=== PATIENT | male | born 1940 | race Caucasian/White ===

== ENCOUNTER 2019-10-24 08:32 | Outpatient (CLI) | payer MEDICARE, SELFPAY ==
[2019-10-24 08:52] LABS: Basophils Percent Auto 0.6 % (0.2-1.2); Eosinophils Absolute Auto 0.3 K/mm3 (0-0.3); Eosinophils Percent Auto 3.9 % (0-4.4); Hematocrit 41.9 % (42.0-52.0); Hemoglobin 14.3 g/dL (14.0-18.0); Immature Granulocyte Absolute 0.02 K/mm3 (0.00-0.031); Immature Granulocyte Percent A 0.3 % (0-0.5); Immature Platelet Fraction Pct 2.8 % (0.9-11.2); Lymphocytes Absolute Auto 2.28 K/mm3 (0.9-3.2); Lymphocytes Percent Auto 35.2 % (18.3-44.2); Mean Corpuscular HGB Conc 34.1 g/dl (32-36); Mean Corpuscular Hemoglobin 29.7 pg (26-34); Mean Corpuscular Volume 87.1 fl (80-100); Mean Platelet Volume 10.3 fl (7.4-10.4); Monocytes Absolute Auto 0.4 K/mm3 (0.1-0.6); Monocytes Percent Auto 6.6 % (2.6-8.5); Neutrophils Absolute Auto 3.5 K/mm3 (1.3-6.7); Neutrophils Percent Auto 53.4 % (45.5-73.1); Platelet Count Result 107 k/mm3 (150-375); Red Blood Count 4.81 M/mm3 (4.6-6.20); Red Cell Distribution Width 13.2 % (11.5-14.5); White Blood Count 6.5 K/mm3 (4.5-10.0)
[2019-10-24 09:00] LABS: Alanine Aminotransferase 16 U/L (4-50); Albumin Level 4.6 g/dL (3.5-5.1); Alkaline Phosphatase 22 U/L (38-126); Aspartate Amino Transferase 23 U/L (17-59); Bilirubin,Total 1.4 mg/dL (0.2-1.3); Blood Urea Nitrogen 19 mg/dL (9-20); Calcium 9.3 mg/dL (8.4-10.2); Carbon Dioxide 29 mmol/L (22-30); Chloride 101 mmol/L (98-107); Cholesterol 113 mg/dL (0-200); Estimated Glomerular Filt Rate 59; Glucose 93 mg/dL (75-110); HDL Direct 35 mg/dL; Potassium 3.8 mmol/L (3.4-5.0); Sodium 137 mmol/L (137-145); Triglycerides 105 mg/dL (<150)
[2019-10-24 09:03] LABS: Hemoglobin A1C 5.2 % (<5.7)
[2019-10-24 09:11] LABS: LDL Cholesterol Direct 54 mg/dL
== END 2019-10-24 08:33 | disposition home or self-care (01) ==
PROVIDERS: PCP Family Medicine; Visit Provider Physician Assistant
DX: I48.91 Unspecified atrial fibrillation (principal); I10 Essential (primary) hypertension; Z79.899 Other long term (current) drug therapy; R73.01 Impaired fasting glucose
CPT/HCPCS: 36415; 80053; 80061; 83036; 84443; 85025; 85055

== ENCOUNTER 2020-10-03 06:37 | Outpatient (CLI) | payer MEDICARE, SELFPAY ==
[2020-10-03 07:36] LABS: Alanine Aminotransferase 17 U/L (4-50); Albumin Level 4.4 g/dL (3.5-5.1); Anion Gap 9 mmol/L (8-16); Aspartate Amino Transferase 21 U/L (17-59); Bilirubin,Total 1.1 mg/dL (0.2-1.3); Blood Urea Nitrogen 24 mg/dL (9-20); Calcium 9.7 mg/dL (8.4-10.2); Carbon Dioxide 29 mmol/L (22-30); Chloride 103 mmol/L (98-107); Estimated Glomerular Filt Rate 49; Glucose 105 mg/dL (75-110); Potassium 4.1 mmol/L (3.4-5.0); Sodium 141 mmol/L (137-145)
[2020-10-03 07:47] LABS: Alkaline Phosphatase < 20 U/L (38-126)
[2020-10-03 08:05] LABS: Prostate Specific Antigen 0.7 ng/mL (< OR = 4.0)
[2020-10-03 08:39] LABS: Hemoglobin A1C 4.9 % (<5.7)
== END 2020-10-03 06:38 | disposition home or self-care (01) ==
PROVIDERS: PCP Family Medicine; Visit Provider Physician Assistant
DX: Z12.5 Encounter for screening for malignant neoplasm of prostate (principal); R73.01 Impaired fasting glucose
CPT/HCPCS: 36415; 80053; 83036; 84153; G0103

== ENCOUNTER 2021-02-18 06:36 | Outpatient (CLI) | payer MEDICARE, SELFPAY ==
[2021-02-18 07:18] LABS: Hematocrit 41.9 % (42.0-52.0); Hemoglobin 14.7 g/dL (14.0-18.0); Immature Platelet Fraction Pct 3.8 % (0.9-11.2); Mean Corpuscular HGB Conc 35.1 g/dl (32-36); Mean Corpuscular Hemoglobin 31.7 pg (26-34); Mean Corpuscular Volume 90.3 fl (80-100); Mean Platelet Volume 9.5 fl (7.4-10.4); Platelet Count Result 88 k/mm3 (150-375); Red Blood Count 4.64 M/mm3 (4.6-6.20); Red Cell Distribution Width 13.3 % (11.5-14.5); White Blood Count 5.3 K/mm3 (4.5-10.0)
[2021-02-18 07:29] LABS: Hemoglobin A1C 4.9 % (<5.7)
[2021-02-18 07:31] LABS: Alanine Aminotransferase 17 U/L (4-50); Albumin Level 4.8 g/dL (3.5-5.1); Alkaline Phosphatase 21 U/L (38-126); Anion Gap 8 mmol/L (8-16); Aspartate Amino Transferase 24 U/L (17-59); Bilirubin,Total 1.2 mg/dL (0.2-1.3); Blood Urea Nitrogen 22 mg/dL (9-20); Calcium 9.5 mg/dL (8.4-10.2); Carbon Dioxide 30 mmol/L (22-30); Chloride 101 mmol/L (98-107); Cholesterol 142 mg/dL (0-200); Estimated Glomerular Filt Rate > 60; Glucose 112 mg/dL (65-110); HDL Direct 42 mg/dL; Potassium 4.2 mmol/L (3.4-5.0); Sodium 139 mmol/L (137-145); Triglycerides 166 mg/dL (<150)
[2021-02-18 07:42] LABS: LDL Cholesterol Direct 60 mg/dL
== END 2021-02-18 06:37 | disposition home or self-care (01) ==
PROVIDERS: PCP Family Medicine; Visit Provider Physician Assistant
DX: R73.01 Impaired fasting glucose (principal); N40.1 Benign prostatic hyperplasia with lower urinary tract symptoms; I10 Essential (primary) hypertension; Z79.899 Other long term (current) drug therapy
CPT/HCPCS: 36415; 80053; 80061; 83036; 84443; 85027; 85055

== ENCOUNTER 2021-04-03 06:51 | Outpatient (CLI) | payer MEDICARE, SELFPAY ==
[2021-04-03 07:53] LABS: Basophils Percent Auto 0.7 % (0.2-1.2); Eosinophils Absolute Auto 0.3 K/mm3 (0-0.3); Eosinophils Percent Auto 5.1 % (0-4.4); Hematocrit 42.3 % (42.0-52.0); Hemoglobin 14.9 g/dL (14.0-18.0); Immature Granulocyte Absolute 0.03 K/mm3 (0.00-0.031); Immature Granulocyte Percent A 0.5 % (0-0.5); Lymphocytes Absolute Auto 2.18 K/mm3 (0.9-3.2); Lymphocytes Percent Auto 37.4 % (18.3-44.2); Mean Corpuscular HGB Conc 35.2 g/dl (32-36); Mean Corpuscular Hemoglobin 32.3 pg (26-34); Mean Corpuscular Volume 91.6 fl (80-100); Mean Platelet Volume 9.7 fl (7.4-10.4); Monocytes Absolute Auto 0.5 K/mm3 (0.1-0.6); Monocytes Percent Auto 7.7 % (2.6-8.5); Neutrophils Absolute Auto 2.8 K/mm3 (1.3-6.7); Neutrophils Percent Auto 48.6 % (45.5-73.1); Platelet Count Result 112 k/mm3 (150-375); Red Blood Count 4.62 M/mm3 (4.6-6.20); Red Cell Distribution Width 13.4 % (11.5-14.5); White Blood Count 5.8 K/mm3 (4.5-10.0)
== END 2021-04-03 06:52 | disposition home or self-care (01) ==
PROVIDERS: PCP Family Medicine; Visit Provider Family Medicine
DX: R79.89 Other specified abnormal findings of blood chemistry (principal); Z51.81 Encounter for therapeutic drug level monitoring; Z79.899 Other long term (current) drug therapy; E78.1 Pure hyperglyceridemia; I10 Essential (primary) hypertension; R60.9 Edema, unspecified
CPT/HCPCS: 36415; 84439; 84443; 85025; 85055

== ENCOUNTER 2022-06-24 07:13 | Outpatient (CLI) | payer MEDICARE, SELFPAY ==
[2022-06-24 07:40] LABS: Alanine Aminotransferase 25 U/L (6-50); Albumin Level 4.4 g/dL (3.5-5.1); Alkaline Phosphatase 26 U/L (38-126); Anion Gap 7 mmol/L (8-16); Aspartate Amino Transferase 26 U/L (17-59); Bilirubin,Total 1.1 mg/dL (0.2-1.3); Blood Urea Nitrogen 17 mg/dL (9-20); Calcium 8.8 mg/dL (8.4-10.2); Carbon Dioxide 28 mmol/L (22-30); Chloride 104 mmol/L (98-107); Cholesterol 113 mg/dL (0-200); Estimated Glomerular Filt Rate 58; Glucose 114 mg/dL (65-110); HDL Direct 27 mg/dL; Potassium 3.8 mmol/L (3.4-5.0); Sodium 139 mmol/L (137-145); Triglycerides 184 mg/dL (<150)
[2022-06-24 07:51] LABS: LDL Cholesterol Direct 46 mg/dL
[2022-06-24 08:11] LABS: Hemoglobin A1C 5.2 % (<5.7)
[2022-06-24 08:18] LABS: Free T4 Free Thyroxine 0.95 ng/mL (0.78-2.19)
== END 2022-06-24 07:14 | disposition home or self-care (01) ==
LOC: ANHLAB 07:15
PROVIDERS: PCP Emergency Medicine; Visit Provider Emergency Medicine
DX: R73.01 Impaired fasting glucose (principal); E03.9 Hypothyroidism, unspecified; E78.1 Pure hyperglyceridemia
CPT/HCPCS: 36415; 80053; 80061; 83036; 84439; 84443

== ENCOUNTER → 2023-05-18 14:49 | Outpatient (CLI) | payer MEDICARE, SELFPAY ==
--- NOTE | ~2023-05-18 | XR_ITS ---
XR hand LT 2V DATE: 05/18/2023 15:06 INDICATION: Fall one week ago. Swelling. TECHNIQUE: 3 views COMPARISON: None FINDINGS: No fracture, dislocation, periosteal reaction or bone destruction is evident. Joint spaces are relatively preserved. No erosive change or chondrocalcinosis. IMPRESSION: No significant abnormality Reviewed, dictated and finalized at location B. ICIAN ASSISTANT SURGERY IMPRESSION: No significant abnormality
--- NOTE | ~2023-05-18 | XR_ITS ---
XR forearm LT 2V DATE: 05/18/2023 15:07 INDICATION: Fall one week ago. Swelling. TECHNIQUE: AP and lateral views COMPARISON: None FINDINGS: Dorsal olecranon process spur. No fracture or dislocation, periosteal reaction or bone dest ruction of the radius or ulna. Normal alignment at the elbow and wrist joints. IMPRESSION: Dorsal olecranon process spur Reviewed, dictated and finalized at location B. HEATER HELPER
--- NOTE | ~2023-05-18 | XR_ITS ---
XR wrist LT min 3V DATE: 05/18/2023 15:07 INDICATION: Fall one week ago. Swelling. TECHNIQUE: 4 views COMPARISON: None FINDINGS: Benign-appearing probable cyst of the navicular bone. No fracture or dislocation, periosteal reaction or bone destruction is detected. Joint spaces are rel atively well preserved. No erosive change is noted. IMPRESSION: No fracture or dislocation is detected. Reviewed, dictated and finalized at location B. SCAPING SPECIALIST
== END ==
PROVIDERS: PCP Emergency Medicine; Visit Provider Emergency Medicine
DX: M25.432 Effusion, left wrist (principal); M25.722 Osteophyte, left elbow; W19.XXXA Unspecified fall, initial encounter
CPT/HCPCS: 73090; 73110; 73120

== ENCOUNTER 2023-05-18 15:07 | Outpatient (CLI) | payer MEDICARE, SELFPAY ==
[2023-05-18 19:04] LABS: Basophils Absolute Auto 0.1 K/mm3 (0.0-0.1); Basophils Percent Auto 0.8 % (0.2-1.2); Eosinophils Absolute Auto 0.2 K/mm3 (0-0.3); Eosinophils Percent Auto 2.1 % (0-4.4); Hematocrit 40.9 % (42.0-52.0); Hemoglobin 13.7 g/dL (14.0-18.0); Immature Granulocyte Absolute 0.03 K/mm3 (0.00-0.031); Immature Granulocyte Percent A 0.4 % (0-0.5); Lymphocytes Absolute Auto 1.63 K/mm3 (0.9-3.2); Lymphocytes Percent Auto 21.1 % (18.3-44.2); Mean Corpuscular HGB Conc 33.5 g/dl (32-36); Mean Corpuscular Hemoglobin 30.9 pg (26-34); Mean Corpuscular Volume 92.1 fl (80-100); Mean Platelet Volume 10.3 fl (7.4-10.4); Monocytes Absolute Auto 0.5 K/mm3 (0.1-0.6); Monocytes Percent Auto 6.1 % (2.6-8.5); Neutrophils Absolute Auto 5.4 K/mm3 (1.3-6.7); Neutrophils Percent Auto 69.5 % (45.5-73.1); Platelet Count Result 132 k/mm3 (150-375); Red Blood Count 4.44 M/mm3 (4.6-6.20); Red Cell Distribution Width 14.3 % (11.5-14.5); White Blood Count 7.7 K/mm3 (4.5-10.0)
== END 2023-05-18 15:08 | disposition home or self-care (01) ==
LOC: ANHGOSHLAB 15:09
PROVIDERS: PCP Emergency Medicine; Visit Provider Emergency Medicine
DX: I48.91 Unspecified atrial fibrillation (principal)
CPT/HCPCS: 36415; 85025

== ENCOUNTER 2023-12-15 12:55 | Outpatient (CLI) | payer MEDICARE, SELFPAY ==
[2023-12-15 14:34] LABS: Alanine Aminotransferase 17 U/L (6-50); Albumin Level 4.6 g/dL (3.5-5.1); Alkaline Phosphatase 26 U/L (38-126); Anion Gap 11 mmol/L (4-12); Aspartate Amino Transferase 27 U/L (17-59); Bilirubin,Total 2.7 mg/dL (0.2-1.3); Blood Urea Nitrogen 17 mg/dL (9-20); Calcium 9.5 mg/dL (8.4-10.2); Carbon Dioxide 29 mmol/L (22-30); Chloride 96 mmol/L (98-107); Estimated Glomerular Filt Rate 58; Glucose 94 mg/dL (65-110); Potassium 4.2 mmol/L (3.4-5.0); Sodium 136 mmol/L (137-145)
[2023-12-15 14:47] LABS: Free T4 Free Thyroxine 0.87 ng/mL (0.78-2.19)
[2023-12-15 15:02] LABS: Prostate Specific Antigen 1.7 ng/mL (< OR = 4.0); Total Triiodothyronine (T3) 0.86 NG/ML (0.97-1.69)
== END 2023-12-15 12:56 | disposition home or self-care (01) ==
LOC: ANHLAB 12:58
PROVIDERS: PCP Emergency Medicine; Visit Provider Emergency Medicine
DX: Z12.5 Encounter for screening for malignant neoplasm of prostate (principal); E78.1 Pure hyperglyceridemia; R73.01 Impaired fasting glucose; E03.9 Hypothyroidism, unspecified; E03.8 Other specified hypothyroidism
CPT/HCPCS: 36415; 80053; 84153; 84439; 84443; 84480; G0103

== ENCOUNTER 2024-12-13 13:26 | Outpatient (CLI) | payer MEDICARE, SELFPAY ==
--- OUTSIDE RECORDS SUMMARY | 2024-12-13 13:45 | XMS_ITS | Clinical Summary ---
Author Organization [facility] [address] Address [address] [place] [address] Care Team Providers Care Cold Rolling Machine Setter Name Role Phone Radha Messina MD Primary Care Provider [phone] Allergies Active Allergy Reactions Criticality Noted Date Comments Iodinated Contrast Media Syncope High 04/30/2018 Medications doxazosin (CARDURA) 4 mg tablet Take 4 mg by mouth nightly 03/18/2018 Active multivitamin capsule Take 1 capsule by mouth daily. Active nebivolol (BYSTOLIC) 10 mg tablet Take 10 mg by mouth daily. Active triamterene-hyd roCHLOROthiazid e (MAXZIDE,DYAZID E) 37.5-25 mg per tablet/capsule Take 1 tablet/capsu le by mouth daily. Active LUMIGAN 0.01 % ophthalmic drops INT 1 GTT IN OU QPM UTD 11 01/07/2019 Active rivaroxaban (XARELTO) 20 mg tablet Take 20 mg by mouth daily Active levothyroxine (SYNTHROID) 50 mcg tablet Take 50 mcg by mouth daily 09/20/2021 Active metoprolol XL (TOPROL-XL) 50 mg extended release tablet 04/11/2022 Acti ve Active Problems Problem Noted Date Diagnosed Date Atrial fibrillation 04/30/2018 Chronic anticoagulation 04/30/2018 Essential hypertension 04/30/2018 Hyperlipidemia LDL goal <100 04/30/2018 Pulmonary hypertension 04/30/2018 Nonrheumatic aortic valve stenosis 04/30/2018 Surgical History Surgery Date Site/Laterality Comments CHOLECYSTECTOMY 05/04/2004 - 05/03/2005 TONSILLECTOMY 05/04/1946 - 05/03/1947 Medical History Medical History Date Comments Hypertension Arrhythmia Atrial fibrillation (HCC) Hyperlipidemia Family History Medical History Relation Name Comments Stomach cancer Brother 2 Adrenal disorder Father Dementia Mother Heart disease Sister Heart failure Sister Relation Name Status Comments Brother 1 Alive Brother 2 (Age 28) Father (Age 84) Mother (Age 89) Sister Alive Social History Tobacco Use Types Packs/Day Years Used Date Smoking Tobacco: Former Cigarettes 1 20 1 07/01/1963 - 04/30/1984 Smokeless Tobacco: Never Tobacco Cessation:Counseling Given: Not Answered Alcohol Use Standard Drinks/Week Comments Yes 1 (1 standard drink = 0.6 oz pur e alcohol) rarely Personal Safety Answer Date Recorded Getting School Help Needed Not on file 07/02 Sex and Gender Information Value Date Recorded Sex Assigned at Not on file Legal Sex Male 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 Gender Identity Not on file Sexual Orientation Not on file Obstetrics History Last Filed Vital Signs Vital Sign Reading Time Taken Comments Blood Pressure 124/84 04/15/2022 12:02 PM DIRECTOR OF NEUROLOGY Pulse 87 04/15/2022 11:38 AM DIRECTOR OF NEUROLOGY Temperature 36.3 C (97.3 F) 06/04/2020 10:23 AM DIRECTOR OF NEUROLOGY Respiratory Rate - - Oxygen Saturation 97% 04/15/2022 11:38 AM DIRECTOR OF NEUROLOGY Inhaled Oxygen Concentration - - Weight 98 kg (216 lb) 04/15/2022 11:38 AM DIRECTOR OF NEUROLOGY Height 180.3 cm (5' 11) 04/15/2022 11:38 AM DIRECTOR OF NEUROLOGY Body Mass Index 30.13 04/15/2022 11:38 AM DIRECTOR OF NEUROLOGY Plan of Treatment Health Maintenance Due Date Last Done Comments Depression Screening 1942 Fall Risk Assessment 1942 DTaP/Tdap/Td Vaccine (1 - Tdap) 1953 Hepatitis B Screening 1960 Pneumococcal vaccine 65+ (1 of 1 - PCV) 1992 Zoster Vaccine (1 of 2) 1992 Well Visit 65+ 2007 Influenza Vaccine (#1) 2025 02/16/2019, [address] [place] [address] [facility] [place] [address] Care Teams Cold Rolling Machine Setter Relationship Specialty Start Date End Date Radha Messina MD [address] [place] [address] PCP - General Family Medicine 04/29/17
--- OUTSIDE RECORDS SUMMARY | 2024-12-13 13:45 | XMS_ITS | Encounter Summary ---
Author Organization [facility] Healthcare Address [address] [place] [address] Care Team Providers Care Precision Grinder External Name Role Phone Miscellaneous, Not In File Primary Care Provider Unavailable Radha Messina MD Primary Care Provider [phone] Encounter Details Date Type Department Care Team (Late st Contact Info) Description 01/28/2017 Orders Only 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 Gender Identity Not on file Sexual Orientation Not on file documented as of this encounter Plan of Treatment Not on file documented as of this encounter Procedures Procedure Name Priority Date/Time Associated Diagnosis Comments CARDIOLOGY DOCUMENT SCAN 01/28/2017 documented in this encounter Results * Cardiology Document Scan (01/28/2017) Anatomical Region Laterality Modality Other Provider Scanning CV CARDIAC SERVICES PROCEDURES Final Result documented in this encounter Visit Diagnoses Not on filedocumented in this encounter Care Teams Precision Grinder External Relationship Specialty Start Date End Date Miscellaneous, Not In File PCP - General 11/01/1604/28 Radha Messina MD [address] [place] [address] PCP - General Family Medicine 04/29/17 documented as of this encounter
[2024-12-13 14:29] LABS: Hematocrit 37.7 % (42.0-52.0); Hemoglobin 12.6 g/dL (14.0-18.0); Immature Granulocyte Percent A 0.4 % (0-0.5); Immature Platelet Fraction Pct 2.5 % (0.9-11.2); Lymphocytes Absolute Auto 2.00 K/mm3 (0.9-3.2); Mean Corpuscular HGB Conc 33.4 g/dl (32-36); Mean Corpuscular Hemoglobin 29.2 pg (26-34); Mean Corpuscular Volume 87.3 fl (80-100); Nucleated Red Blood Cells Absolute Auto 0.000 K/mm3 (0.0-0.012); Nucleated Red Blood Cells Perc 0.0 % (0.0-0.2); Platelet Count Result 127 k/mm3 (150-375); Red Blood Count 4.32 M/mm3 (4.6-6.20); White Blood Count 7.1 K/mm3 (4.5-10.0)
[2024-12-13 14:37] LABS: Alanine Aminotransferase 18 U/L (6-50); Albumin Level 4.7 g/dL (3.5-5.1); Alkaline Phosphatase 28 U/L (38-126); Anion Gap 11 mmol/L (4-12); Aspartate Amino Transferase 27 U/L (17-59); Bilirubin,Total 1.7 mg/dL (0.2-1.3); Blood Urea Nitrogen 27 mg/dL (9-20); Calcium 10.2 mg/dL (8.4-10.2); Carbon Dioxide 26 mmol/L (22-30); Chloride 99 mmol/L (98-107); Cholesterol 129 mg/dL (0-200); Estimated Glomerular Filt Rate 52; Glucose 118 mg/dL (65-110); HDL Direct 35 mg/dL; Potassium 4.3 mmol/L (3.4-5.0); Sodium 136 mmol/L (137-145); Total Protein 7.7 g/dL (6.3-8.2); Triglycerides 144 mg/dL (<150)
[2024-12-13 15:08] LABS: Thyroid Stimulating Hormone 2.630 uIU/mL (0.465-4.680)
== END 2024-12-13 13:27 | disposition home or self-care (01) ==
PROVIDERS: PCP Family Medicine; Visit Provider Family Medicine
DX: I48.20 Chronic atrial fibrillation, unspecified (principal); E03.8 Other specified hypothyroidism; E78.1 Pure hyperglyceridemia; I35.0 Nonrheumatic aortic (valve) stenosis
CPT/HCPCS: 36415; 80053; 80061; 84443; 85025; 85055